=== PATIENT | female | born 1985 | race Caucasian/White ===

== ENCOUNTER → 2017-07-31 | Outpatient (CLI) | payer BC ==
[~2017-07-31] MED LIST: PRENTAB26 PO
== END | disposition home or self-care (01) ==
LOC: C.PAPS 14:13
PROVIDERS: ATTEND Obstetrics & Gynecology
DX: Z01.419 Encounter for gynecological examination (general) (routine) without abnormal findings (principal)

== ENCOUNTER 2019-10-19 01:50 | Inpatient (IN) ==
[2019-10-19] MEDS ORDERED: LACTATED RINGER'S 1,000 ML IV PRN (02:07)
[2019-10-19] MEDS ORDERED: PENICILLIN G POTASSIUM 3 MU in DEXTROSE 5% 100 ML IV PRN (02:07)
[2019-10-19] MEDS ORDERED: PENICILLIN G POTASSIUM 6 MU in DEXTROSE 5% 250 ML IV STA (02:07)
[2019-10-19] MEDS ORDERED: OXYTOCIN 30 UNITS/500 ML BAG IV PRN ×2 (02:07→04:32)
[2019-10-19] MEDS ORDERED: fentaNYL citrate 100 MCG/2 ML VIAL ONE (02:08)
[2019-10-19] MEDS ORDERED: fentaNYL 2MCG/ML ROPIV 1.25MG/ML 100 ML BAG EPI ONE (02:08)
[2019-10-19] MEDS ORDERED: ePHEDrine sulfate 50 MG/ML AMP ONE (02:08)
[2019-10-19] MEDS ORDERED: BUPIVACAINE 0.25% 30 ML VIAL ONE (02:08)
[2019-10-19 02:30] LABS: Hemoglobin 13.9 g/dL (12.0-16.0); Mean Corpuscular Volume 94.3 fL (80-100); Mean Platelet Volume 9.6 fL (7.4-10.4); Platelet Count 186 K/uL (130-400); Red Blood Count 4.35 M/uL (4.2-5.4); White Blood Count 16.21 K/uL (4.8-10.8)
--- NOTE | 2019-10-19 03:28 | History & Physical Report ---
Date of Service October 19, 2019 Assessment & Plan (1) Prolonged , antepartum condition or complication: -Tracing category 2 -Patient with unavoidable urge to push -Patient unable to get epidural -Unable to get penicillin for adequate treatment -Anticipate vaginal delivery (2) Carrier of group B Streptococcus: History of Present Illness Chief Complaint: Labor Primary Care Provider: Antionette Gaffney MD The patient is a 34-year-old 2 para 1 with an EDC of 18 October at 40+ weeks gestational age presents to labor and delivery in active labor. Patient states the contractions began shortly after midnight on day of admission. She denied rupture of membranes or vaginal bleeding. The patient has had a benign course. Her blood type is O+, antibody negative, rubella immune, hepatitis B negative, she declined cell free DNA screening, she had a negative quad screen, she had a normal 1 hour Glucola at 16 weeks, and elevated 1 hour Glucola at 28 weeks, a normal 2-hour glucose tolerance test and a positive third trimester beta strep culture. Allergies Allergy/AdvReac Type Severity Reaction Status Date / Time No Known Allergies Allergy Verified 10/19/19 01:58 Home Medications Home Medications Medication Instructions Recorded Confirmed Type prenat.vits,gracie,egk-yfrm-ugkql 1 tab PO DAILY 04/21/19 10/19/19 History Patient History Social History (Updated 04/26/19 @ 17:22 by Saida Coffey) Preferred Language: Citizen Of [place] Communication Ability: Effective Signal Mechanic Required: No Beliefs That Will Affect Care: None marital status: Current Living Situation: Family Other Information That Helps Us Care for You: No Feels Safe at Home: Yes Safety Concerns: Feels Safe At This Time Smoking Status: Never smoker Hx Alcohol Use: No Hx Substance Use: No Physical Exam Constitutional: WD/WN, vitals as above Respiratory: Auscultation: lungs clear to auscultation bilaterally Cardiovascular: RRR, no murmur, no edema Extremities: no calf tenderness Gastrointestinal (Abdomen): Gravid, vertex, positive heart tones, estimated weight of 7 and half pounds Genitourinary: Cervix: Fully dilated/+2 station/bulging membranes Results & Data Vital Signs (Past 12 Hours) Vital Signs Temp Pulse Resp BP Pulse Ox 10/19/19 03:19 101 H 151/62 H 10/19/19 03:03 117 H 80 L 10/19/19 02:58 97 H 100 10/19/19 02:53 73 100 10/19/19 02:48 96 H 100 10/19/19 02:43 84 100 10/19/19 02:09 88 124/73 10/19/19 02:08 98.2 F 18 Coding Level of Care Code None Diagnoses Prolonged , antepartum condition or complication O48.1 Carrier of group B Streptococcus Z22.330
--- NOTE | 2019-10-19 03:33 | Delivery Summary ---
Vaginal Delivery Summary Date of Service October 19, 2019 Vaginal Delivery Summary Findings: Viable male with Apgars of 8 and 9. Baby delivered spontaneously over an intact perineum. Cord blood samples obtained. Placenta delivered spontaneously. Inspection of the perineum found to be intact, estimated blood loss 300 cc. Labor Note: The patient is a 34-year-old 2 para 1 with an EDC of 18 October at 40+ weeks gestational age presents to labor and delivery in active labor. Patient states the contractions began shortly after midnight on day of admission. She denied rupture of membranes or vaginal bleeding. The patient has had a benign course. Her blood type is O+, antibody negative, rubella immune, hepatitis B negative, she declined cell free DNA screening, she had a negative quad screen, she had a normal 1 hour Glucola at 16 weeks, and elevated 1 hour Glucola at 28 weeks, a normal 2-hour glucose tolerance test and a positive third trimester beta strep culture. Upon admission nursing examination found the patient to be 6 to 7 cm dilated. Penicillin was ordered for the GBS status. Patient requested an epidural. Before the epidural can be placed, the patient was fully dilated with an uncontrollable urge to push. Examination showed the cervix to be fully dilated and membranes spontaneously ruptured for clear fluid. Over the next contraction the baby was delivered over an intact perineum cord was clamped and cut cord blood samples obtained placenta was delivered spontaneously perineum was inspected and found to be intact. Estimated blood loss 300 cc. Sponge and needle count was correct.
[2019-10-19 03:44] LABS: Mean Corpuscular Hgb Conc 33.9 g/dL (32-36)
[2019-10-19] MEDS ORDERED: DIPHTHERIA/TETANUS/PERTUSSIS 0.5 ML SYR/VIAL IM ONE (04:32)
[2019-10-19] MEDS ORDERED: ACETAMINOPHEN W/CODEINE #3 1 TAB PO PRN (04:32)
[2019-10-19] MEDS ORDERED: HYDROCORTISONE ACETATE 25 MG SUPP PR PRN (04:32)
[2019-10-19] MEDS ORDERED: ACETAMINOPHEN 325 MG TAB PO PRN (04:32)
[2019-10-19] MEDS ORDERED: SUPERCREAM 0.870% 15 GM JAR EXT PRN (04:32)
[2019-10-19] MEDS ORDERED: BENZOCAINE 20% AER SPR 82.5 GM CAN EXT PRN (04:32)
[2019-10-19] MEDS: DOCUSATE SODIUM 100 MG CAP PO SCH ×2 (08:30→20:56)
[2019-10-19] MEDS: FERROUS SULFATE 325 MG TAB PO SCH (08:30)
[2019-10-19] MEDS: PRENATAL VITAMIN 1 TAB PO SCH (08:30)
[2019-10-19] MEDS: IBUPROFEN 600 MG TAB PO PRN (17:32)
--- NOTE | 2019-10-20 07:12 | Obstetrical Progress Note ---
Date of Service October 20, 2019 Assessment & Plan (1) Status post vaginal delivery: BL is a 34 yo F on PPD 1 after at 40w - GBS -, Blood Type O+, Rubella immune -Vitals reviewed and WNL -patient is doing clinically well Patient recovering normally - After discharge will have [address] Peters. Supervising Physician Co-Signing Physician Notes Resident Physician Supervision Note: I interviewed and examined the patient. Discussed with Dr. Calvillo and agree with findings and plan as documented in the note. Any exceptions or clarifications are listed here: Doing well PPD 1. GBS positive with only one dose of antibiotic. Await peds decision on d/c. Would like to go home today if can, but possibly tomorrow. Documented By: Leticia Peters MD, FACOG Subjective Ambulation: ambulating normally Voiding: no voiding problems Passing Gas:: Yes Diet Tolerance:: regular diet Lochia:: Small Feeding Type:: breast feeding Review of Systems Constitutional: no fever, no chills and no sweats Eyes: no worsening vision Respiratory: no cough and no dyspnea Cardiovascular: no chest pain, no palpitations, no edema and no calf pain Gastrointestinal: no nausea and no vomiting Genitourinary: no dysuria and no urinary frequency Neurologic: no headache(s) Physical Exam Constitutional: WD/WN, vitals as above no acute distress Respiratory: normal respiratory effort, lungs clear to auscultation does not use accessory muscles Auscultation: no crackles, no rales, no rhonchi, no wheezes and no pleural rub Cardiovascular: Rate/Rhythm: regular rate and regular rhythm Heart Sounds: normal S1 and normal S2; no gallop, no murmur and no cardiac rub Extremities: no calf tenderness and no pedal edema Gastrointestinal (Abdomen): Inspection/Auscultation: normal bowel sounds; abdomen not distended Percussion/Palpation: abdomen soft Genitourinary: Uterus: fundus firm, palpable 1 cm below the umbilicus Results & Data Vital Signs (Past 12 Hours) Vital Signs Temp Pulse Resp BP 10/20/19 00:15 36.7 C 74 18 119/80 Resident Activity Tracking Resident Involvement: Resident Care Provided Care Provided: Adult [facility]
[2019-10-20] MEDS: DOCUSATE SODIUM 100 MG CAP PO SCH ×2 (09:32→20:30)
[2019-10-20] MEDS: IBUPROFEN 600 MG TAB PO PRN ×2 (09:32→20:29)
[2019-10-20] MEDS: PRENATAL VITAMIN 1 TAB PO SCH (09:32)
[2019-10-20] MEDS: FERROUS SULFATE 325 MG TAB PO SCH (09:32)
[2019-10-20] MEDS ORDERED: bisacodyL 5 MG TABEC PO SCH (20:00)
[2019-10-21 06:22] LABS: Hematocrit (blood only) 37.7 % (37-47); Hemoglobin 12.5 g/dL (12.0-16.0)
--- NOTE | 2019-10-21 06:30 | Obstetrical Progress Note ---
Date of Service October 21, 2019 Assessment & Plan (1) Status post vaginal delivery: BL is a 34 yo F on PPD 2 after at 40w - GBS+ (treated at delivery), Blood Type O+, Rubella immune -Vitals reviewed and WNL Patient recovering normally. Discharge instructions reviewed. - After discharge will have [address] Peters. Supervising Physician Co-Signing Physician Notes Resident Physician Supervision Note: I was present with Dr. Calvillo during the history and exam. I discussed the case with the resident and agree with the findings and plan as documented in the note. Any exceptions or clarifications are listed here: PPD#2 doing well. DC home today. Instructions reviewed. Documented By: Lyndsey Bass, Subjective Ambulation: ambulating normally Voiding: no voiding problems Passing Gas:: Yes Diet Tolerance:: regular diet Lochia:: Small Feeding Type:: breast feeding Review of Systems Constitutional: no fever, no chills and no sweats Eyes: no worsening vision Respiratory: no cough and no dyspnea Cardiovascular: no chest pain, no palpitations, no edema and no calf pain Gastrointestinal: no nausea and no vomiting Genitourinary: no dysuria and no urinary frequency Neurologic: no headache(s) Physical Exam Constitutional: WD/WN, vitals as above no acute distress Respiratory: normal respiratory effort, lungs clear to auscultation does not use accessory muscles Auscultation: no crackles, no rales, no rhonchi, no wheezes and no pleural rub Cardiovascular: Rate/Rhythm: regular rate and regular rhythm Heart Sounds: normal S1 and normal S2; no gallop, no murmur and no cardiac rub Extremities: no calf tenderness and no pedal edema Gastrointestinal (Abdomen): Inspection/Auscultation: normal bowel sounds; abdomen not distended Percussion/Palpation: abdomen soft Genitourinary: Uterus: fundus firm, palpable 2 cm below the umbilicus Results & Data Vital Signs (Past 12 Hours) Vital Signs Temp Pulse Pulse Resp BP Pulse Ox 10/21/19 00:00 36.8 C 72 16 139/81 97 10/20/19 20:30 36.7 C 89 16 145/81 H Resident Activity Tracking Resident Involvement: Resident Care Provided Care Provided: Adult Hospital Medicine
[2019-10-21 07:59] VITALS: BP 111/73; PULSE 87; TEMP 97.9; O2SAT 98
[2019-10-21] MEDS: FERROUS SULFATE 325 MG TAB PO SCH (08:53)
[2019-10-21] MEDS: PRENATAL VITAMIN 1 TAB PO SCH (08:53)
[2019-10-21] MEDS: DOCUSATE SODIUM 100 MG CAP PO SCH (08:53)
== END 2019-10-21 13:25 | disposition home or self-care (01) | DRG 807 ==
LOC: OPB 01:50 → 4S1 01:56 → 4S2 05:40